=== PATIENT | female | born 1980 | race Caucasian/White ===

== ENCOUNTER 2018-02-25 16:04 | Emergency (ER) | payer OTHER ==
[~2018-02-25] VITALS: Ht 152.4 cm; Wt 87.1 kg
[2018-02-25 16:06] VITALS: Ht 152.4 cm; Wt 87.1 kg
[2018-02-25 17:53] VITALS: BP 120/64
== END 2018-02-25 17:53 | disposition home or self-care (01) ==
LOC: ED 16:04
DX: J18.9 Pneumonia, unspecified organism (principal)
CPT/HCPCS: J0696; J7512; J7613; J7644; Q0092